=== PATIENT | male | born 1990 | race Two or more races ===

== ENCOUNTER 2024-05-22 11:14 | Emergency (ER) | payer SELFPAY ==
[2024-05-22 11:36] VITALS: BP 139/88; PULSE 71; RESP 18; TEMP 36.6; O2SAT 98; BMI 26.7
[2024-05-22 11:44] LABS: Apearance,Urine Clear (Clear); Color,Urine Yellow (Yellow); Glucose,Urine (UA) Negative (Negative); Protein,Urine Negative (Negative)
[2024-05-22 11:45] LABS: Bilirubin,Urine Negative (Negative); Blood, Urine Negative (Negative); Ketones,Urine Negative (Negative); UTC Leukocyte Esterase,Urine Negative (Negative); UTC Nitrate,Urine Negative (Negative); Urobilinogen,Urine 0.2 EU/dl (0.2)
--- NOTE | 2024-05-22 12:03 | ED_ITS ---
Discharge Plan Disposition Patient Disposition: Home, Self-Care Condition: Good Prescriptions Prescriptions: New ciprofloxacin HCl [Cipro] 500 mg tablet 500 mg PO BID 10 Days Qty: 20 0RF Referrals Follow up/Referrals: Provider,MD Andrew [Primary Care Provider] - See instructions Magdiel Irby MD [Referring] - See instructions Activity Restrictions/Add. Instructions Additional Instructions/Restrictions: Drink plenty of fluids. Take tylenol for pain or fever. Take the medications as directed. Follow up with your regular doctor. GO TO THE ER FOR ANY WORSENING SYMPTOMS I put in a referral to the urologisit (Dr. Irby). You should follow up with him. His office phone number will be on this paperwork. Please call his office and get an appointment to be rechecked there. Clinical Impressions Clinical Impression: Urinary frequency, History of prostatitis Stand Alone Forms Stand Alone Forms: Work/School Release Instructions Patient Instructions: Prostatitis, Ciprofloxacin Print Language Print Language: Slovak Discharge ED Provider: Carlito Arnold [facility] [place] General Stated complaint: uti symptoms, low back pain, history of prostatiti Mode of Arrival: Ambulatory Source of Information: Patient Time Seen by Provider: 05/22/24 12:03 Description of Symptoms (Recalled from Triage Doc. by RN): PEEING ALOT HEENT Symptoms (Recalled from RN notes): No Resp Symptoms (Recalled from RN notes): No Skin Symptoms (Recalled from RN notes): No MS Symptoms (Recalled from RN notes): No Functional Status (Recalled from RN notes): WNL History of Present Illness Provider Complaint: He states that for the past 3 days he has has urinary frequency, hesitancy and some burning with urination. He states that he has a history of getting prostatitis and having to be treated with antibiotics. He has had some chilling, but no documented fever or body aches. Related Data Previous Rx's ?Medication ?Instructions ?Recorded ciprofloxacin HCl 500 mg tablet 500 mg PO BID 10 days #20 tabs 05/22/24 (Cipro) Allergies Allergy/AdvReac Type Severity Reaction Status Date / Time Fish Containing Products Allergy Unknown Verified 05/22/24 11:38 allergy reaction Worker's Comp Is this a Worker's Comp case?: No [facility] Disclaimer: The information contained in this section may have been updated after the patient was seen, as this information can be updated by other users. Medical History (Updated 05/22/24 @ 12:11 by Carlito Arnold APRN) Family history of prostate problems UTI (urinary tract infection) Social History Smoking Status: Never smoker alcohol intake: never current occupational status: employed Travel in the last 8 weeks: None ROS Obtained: Yes All systems reviewed & no additional complaints except as documented Constitutional Constitutional: Denies chills and Denies fever(s) Eyes Eyes: Denies eye discharge ENT Ears, Nose, Mouth, and Throat: Denies dizziness, Denies otalgia and Denies sore throat Cardiovascular Cardiovascular: Denies chest pain Respiratory Respiratory: Denies shortness of breath, Denies chest congestion, Denies cough, Denies stridor and Denies wheezing Gastrointestinal Gastrointestingal: Denies abdominal pain, nausea or vomiting Genitourinary Male Genitourinary: Reports as per HPI, Reports difficulty urinating, Denies testicular pain, Reports urinary frequency, Reports urinary hesitancy and Denies urinary incontinence Musculoskeletal Musculoskeletal: Reports system reviewed and no additional complaints, except as documented and Denies arthralgias Integumentary/Breasts Skin/Breast: Denies rash Neurologic Neurologic: Denies dizziness and Denies paresthesias Allergic/Immunologic Allergic/Immunologic: Denies wheezing Physical Exam General General appearance: alert and in no apparent distress Head Head exam: atraumatic, normocephalic and normal inspection Eye Eye exam: Present normal appearance, PERRL and EOMI ENT ENT exam: Present normal exam, normal oropharynx, mucous membranes moist, TM's normal bilaterally and normal external ear exam Neck Neck exam: Present normal inspection, full ROM and trachea midline; Absent meningismus or lymphadenopathy Chest Chest inspection: Present normal inspection and symmetric chest wall rise; Absent tenderness Respiratory Respiratory exam: Present normal lung sounds bilaterally; Absent respiratory distress Cardiovascular Cardiovascular exam: Present regular rate and normal rhythm; Absent JVD Abdominal Exam Abdominal exam: Present soft and normal bowel sounds; Absent distention, tenderness or guarding Extremities Exam Extremities exam: Present normal inspection, full ROM and normal capillary refill; Absent calf tenderness Back Exam Back exam: Present normal inspection; Absent tenderness Neurological Exam Neurological exam: Present alert and oriented X3 Psychiatric Psychiatric exam: Present normal affect and normal mood Skin Skin exam: Present warm, dry, intact and normal color Lymphatic Lymphatic Findings: no adenopathy Medical Decision Making Medical Records Medical records reviewed: No I reviewed the patient's medical records. Screening: Per USPSTF and CDC recommendations, given the prevalence of disease in our region, it is our hospital?s policy to screen for HIV and viral Hepatitis for all patients aged 18 and over and those with ongoing risk factors. Tim Inquiry Pt receiving controlled substance: No Vital Signs: 05/22/24 11:36 Temperature 97.8 F Temperature Source Oral Pulse Rate [Left Radial] 71 Respiratory Rate 18 Blood Pressure [Left Arm] 139/88 Blood Pressure Mean [Left Arm] 105 02 Sat by Pulse Oximetry 98 Lab Data Lab results reviewed: Yes I reviewed the patient's lab results. Lab Results 05/22/24 11:44: Urine Color Yellow, Urine Appearance Clear, Urine pH 7.0, Ur Specific Julian 1.020, Urine Protein Negative, Urine Glucose (UA) Negative, Urine Ketones Negative, Urine Blood Negative, Urine Nitrate Negative, Urine Bilirubin Negative, Urine Urobilinogen 0.2, Ur Leukocyte Esterase Negative Orders (Tests/Meds): ORDERS Category Date Time Status Urine Culture Stat Micro 05/22/24 11:32 Received
[2024-05-22 12:06] LABS: POC Glucose,Bedside 87 (70-110)
[2024-05-22 12:16] VITALS: BP 139/88; PULSE 71; RESP 18; TEMP 36.6
[2024-05-24 05:09] LABS: Neisseria gonorrhoeae, NAA Negative (Negative)
--- NOTE | 2024-05-26 07:58 | PC.NURSE ---
attempted to reach patient about test results and medication sent to pharmacy, unable to reach at this time.
== END 2024-05-22 12:20 | disposition home or self-care (01) ==
PROVIDERS: Emergency Provider Nurse Practitioner Family
DX: R35.0 Frequency of micturition (principal); Z87.430 Personal history of prostatic dysplasia
CPT/HCPCS: 81003; 82962; 87086; 87491; 87591; 99213; G0381